=== PATIENT | female | born 1950 | race Caucasian/White ===

== ENCOUNTER 2018-01-11 14:37 | Inpatient (IN) | payer OTHER, BC ==
[~2018-01-11] VITALS: Ht 165.1 cm; Wt 93.9 kg
[~2018-01-11 14:37] MED LIST changes: -AMARYL1 MG PO; -PRAVACHOL40 MG PO; -TAMSULOSIN HCL0.4 MG PO; -TYLENOL REGULA325 MG PO
[2018-01-11 15:14] LABS: HEMATOCRIT 43.7 % (36.0-46.0); HEMOGLOBIN 14.8 G/DL (11.9-15.5); MCHC 33.9 G/DL (30.0-36.0); MCV 88.6 FL (83-99); PLATELET COUNT 249 K/uL (156-360); RBC DIS.WIDTH-CV 12.6 % (11.8-14.6); RBC DIS.WIDTH-SD 41.3 % (39-53); RED BLOOD COUNT 4.93 M/uL (3.80-5.20); WHITE BLOOD COUNT 15.2 K/uL (4.1-10.2)
[2018-01-11 15:28] LABS: CHLORIDE 101 mEq/L (99-109); SODIUM 138 mEq/L (136-147)
[2018-01-11 15:30] LABS: GLUCOSE 215 mg/dL (70-99)
[2018-01-11 15:34] LABS: CREATININE 0.9 mg/dL (0.6-1.3); GFR ESTIMATE (CALCULATED) > 59 mL/min/
[2018-01-11 15:35] LABS: UREA NITROGEN (BUN) 18 mg/dL (9-23)
[2018-01-11] MEDS ORDERED: AMARYL1 MG PO (16:29)
[2018-01-11] MEDS ORDERED: PRAVACHOL40 MG PO (16:29)
[2018-01-11] MEDS ORDERED: TYLENOL REGULA325 MG PO (16:30)
[2018-01-11 16:46] LABS: APPEARANCE SL.HAZY ((CLEAR)); BILIRUBIN NEGATIVE; BLOOD NEGATIVE; COLOR YELLOW ((YELLOW)); GLUCOSE (STRIP) >=500; KETONES 80; LEUKOCYTES NEGATIVE; NITRITE NEGATIVE; PROTEIN (STRIP) 100; SPECIFIC GRAVITY 1.025 (1.000-1.030); UROBILINOGEN 0.2 MG/DL (0.2-1.0)
[2018-01-11 16:50] LABS: BACTERIA RARE /HPF; EPITHELIAL CELLS RARE /HPF; MUCUS NONE SEEN /LPF; RED BLOOD CELLS 0-5 /HPF (0-5); WHITE BLOOD CELLS 0-5 /HPF (0-5)
[2018-01-11 19:15] VITALS: BP 171/75
[2018-01-12] VITALS (7 sets, daily range): BP systolic 97–135; BP diastolic 52–62
[2018-01-12 07:02] LABS: HEMATOCRIT 34.9 % (36.0-46.0); HEMOGLOBIN 11.7 G/DL (11.9-15.5); MCH 29.7 PG (29.0-34.0); MCHC 33.5 G/DL (30.0-36.0); MCV 88.6 FL (83-99); PLATELET COUNT 182 K/uL (156-360); RBC DIS.WIDTH-SD 42.5 % (39-53); RED BLOOD COUNT 3.94 M/uL (3.80-5.20); WHITE BLOOD COUNT 8.5 K/uL (4.1-10.2)
[2018-01-12 07:25] LABS: CHLORIDE 107 MEQ/L (99-109); GFR ESTIMATE (CALCULATED) > 59 mL/min/; GLUCOSE 197 mg/dL (70-99); POTASSIUM 3.6 MEQ/L (3.7-5.4); SODIUM 139 MEQ/L (136-147); UREA NITROGEN (BUN) 17 mg/dL (9-23)
[2018-01-13 04:22] VITALS: BP 127/61
[2018-01-13 06:50] LABS: HEMATOCRIT 34.6 % (36.0-46.0); HEMOGLOBIN 11.3 G/DL (11.9-15.5); MCH 29.4 PG (29.0-34.0); MCHC 32.7 G/DL (30.0-36.0); MCV 89.9 FL (83-99); PLATELET COUNT 154 K/uL (156-360); RBC DIS.WIDTH-CV 13.1 % (11.8-14.6); RBC DIS.WIDTH-SD 43.5 % (39-53); RED BLOOD COUNT 3.85 M/uL (3.80-5.20); WHITE BLOOD COUNT 6.9 K/uL (4.1-10.2)
[2018-01-13 07:26] LABS: CHLORIDE 112 MEQ/L (99-109); CREATININE 0.8 MG/DL (0.6-1.3); GFR ESTIMATE (CALCULATED) > 59 mL/min/; SODIUM 140 MEQ/L (136-147); UREA NITROGEN (BUN) 17 mg/dL (9-23)
[2018-01-13 07:30] LABS: GLUCOSE 118 mg/dL (70-99)
[2018-01-13 08:05] VITALS: BP 122/60
[2018-01-13] MEDS ORDERED: TAMSULOSIN HCL0.4 MG PO (11:42)
== END 2018-01-13 14:51 | disposition home or self-care (01) | DRG 669 ==
LOC: EME 14:37 → EDOF 17:33 → 2EAST 17:33 → ENRESERV 17:39 → 2EAST 19:14 → ENPENDDIS 01-13 → 2EAST 01-13 14:51
PROVIDERS: Emergency Medicine; Hospitalist; Internal Medicine
PROC: 0TC68ZZ Extirpation of Matter from Right Ureter, Via Natural or Artificial Opening Endoscopic (ICD-10-PCS; principal; 2018-01-12)
PROC: 0T768DZ Dilation of Right Ureter with Intraluminal Device, Via Natural or Artificial Opening Endoscopic (ICD-10-PCS; principal; 2018-01-12)
DX: N13.2 Hydronephrosis with renal and ureteral calculous obstruction (principal); E87.2 Acidosis; E78.5 Hyperlipidemia, unspecified; E11.9 Type 2 diabetes mellitus without complications; E86.0 Dehydration; I10 Essential (primary) hypertension; Z87.440 Personal history of urinary (tract) infections; Z87.442 Personal history of urinary calculi; E66.9 Obesity, unspecified; Z68.34 Body mass index [BMI] 34.0-34.9, adult; Z79.4 Long term (current) use of insulin
CPT/HCPCS: 71045; 80048; 81003; 82365 90; 82948; 83036; 83605; 85027; 87040; 87086; 93005; 99281; 99285; C1758; C2625; J0131; J0696; J1100; J1170; J1644; J1815; J1885; J2250; J2405; J3010; J7030

== ENCOUNTER → 2018-01-11 | Outpatient (CLI) | payer OTHER, BC ==
[~2018-01-11] MED LIST: AMARYL1 MG PO; ASPIR-LOW81 MG PO; KEFLEX500 MG PO; LEVEMIR100 UNIT/2 SC; LISINOPRIL-HCT1 EAC3 PO; METFORMIN HCL850 MG PO; PRAVACHOL40 MG PO; TAMSULOSIN HCL0.4 MG PO; TORADOL10 MG PO; TYLENOL REGULA325 MG PO; VITAMIN D31000 UNIT PO; ZOFRAN4 MG PO
== END | disposition home or self-care (01) ==
LOC: CT 13:33
DX: N13.2 Hydronephrosis with renal and ureteral calculous obstruction (principal)
CPT/HCPCS: 74176

== ENCOUNTER 2018-01-14 20:49 | Inpatient (IN) | payer OTHER, BC ==
[~2018-01-14] VITALS: Ht 162.6 cm; Wt 97.3 kg
[~2018-01-14 20:49] MED LIST changes: +AMARYL1 MG PO; +PRAVACHOL40 MG PO; +TAMSULOSIN HCL0.4 MG PO; +TYLENOL REGULA325 MG PO
[2018-01-14 22:15] LABS: HEMATOCRIT 38.5 % (36.0-46.0); HEMOGLOBIN 13.1 G/DL (11.9-15.5); MCH 30.3 PG (29.0-34.0); MCV 89.1 FL (83-99); PLATELET COUNT 193 K/uL (156-360); RBC DIS.WIDTH-CV 12.8 % (11.8-14.6); RBC DIS.WIDTH-SD 41.9 % (39-53); RED BLOOD COUNT 4.32 M/uL (3.80-5.20); WHITE BLOOD COUNT 12.2 K/uL (4.1-10.2)
[2018-01-14 22:29] LABS: CHLORIDE 107 mEq/L (99-109); POTASSIUM 4.6 mEq/L (3.7-5.4); SODIUM 140 mEq/L (136-147)
[2018-01-14 22:34] LABS: CREATININE 0.9 mg/dL (0.6-1.3); GFR ESTIMATE (CALCULATED) > 59 mL/min/
[2018-01-14 22:35] LABS: GLUCOSE 193 mg/dL (70-99); UREA NITROGEN (BUN) 16 mg/dL (9-23)
[2018-01-14 23:07] LABS: APPEARANCE SL.HAZY ((CLEAR)); BILIRUBIN NEGATIVE; BLOOD LARGE; COLOR YELLOW ((YELLOW)); GLUCOSE (STRIP) 50; KETONES 5; LEUKOCYTES MODERATE; NITRITE NEGATIVE; PROTEIN (STRIP) 30; SPECIFIC GRAVITY 1.015 (1.000-1.030); UROBILINOGEN 0.2 MG/DL (0.2-1.0)
[2018-01-14 23:38] LABS: BACTERIA 1+ /HPF; EPITHELIAL CELLS RARE /HPF; RED BLOOD CELLS 40-50 /HPF (0-5); UCUL ADDED? YES; WHITE BLOOD CELLS 15-20 /HPF (0-5)
[2018-01-14 23:39] LABS: MUCUS TRACE /LPF
[2018-01-15 05:08] VITALS: BP 109/53
[2018-01-15 08:00] VITALS: BP 116/56
[2018-01-15] MEDS ORDERED: TYLENOL EXTRA500 MG PO (10:33)
[2018-01-15 15:00] VITALS: BP 120/61
[2018-01-15 23:55] VITALS: BP 120/59
[2018-01-16 06:23] LABS: BASOPHIL (%) 0.5 % (0-1); EOSINOPHIL COUNT 0.2 K/uL (0-0.3); HEMATOCRIT 34.6 % (36.0-46.0); HEMOGLOBIN 11.4 G/DL (11.9-15.5); IMMATURE GRANULOCYTE (%) 0.5 % (0.0-0.7); LYMPHOCYTE (%) 28.2 % (15-42); LYMPHOCYTE COUNT 2.2 K/uL (1.0-2.8); MCH 29.8 PG (29.0-34.0); MCHC 32.9 G/DL (30.0-36.0); MCV 90.3 FL (83-99); MONOCYTE (%) 8.5 % (3-12); MONOCYTE COUNT 0.7 K/uL (0-0.8); NEUTROPHIL (%) 59.3 % (45-76); NEUTROPHIL COUNT 4.6 K/uL (1.8-6.4); PLATELET COUNT 188 K/uL (156-360); RBC DIS.WIDTH-SD 42.7 % (39-53); RED BLOOD COUNT 3.83 M/uL (3.80-5.20); WHITE BLOOD COUNT 7.7 K/uL (4.1-10.2)
[2018-01-16 06:40] LABS: CHLORIDE 108 MEQ/L (99-109); CREATININE 0.9 MG/DL (0.6-1.3); GFR ESTIMATE (CALCULATED) > 59 mL/min/; GLUCOSE 167 mg/dL (70-99); POTASSIUM 4.2 MEQ/L (3.7-5.4); SODIUM 141 MEQ/L (136-147); UREA NITROGEN (BUN) 11 mg/dL (9-23)
[2018-01-16 08:03] VITALS: BP 171/78
[2018-01-16 09:50] LABS: ALBUMIN 3.1 G/DL (3.2-4.8); ALKALINE PHOSPHATASE 50 IU/L (3-129); ALT (GPT) 16 IU/L (3-49); AST (GOT) 14 IU/L (2-34); DIRECT BILIRUBIN 0.1 mg/dL (0.0-0.3); LIPASE 26 U/L (1.0-51.0); TOTAL BILIRUBIN 0.4 MG/DL (0.0-1.0); TOTAL PROTEIN 5.5 G/DL (6.4-8.3)
[2018-01-16 17:33] VITALS: BP 173/78
[2018-01-17 00:18] VITALS: BP 134/82
[2018-01-17 05:54] LABS: BASOPHIL (%) 0.7 % (0-1); EOSINOPHIL (%) 2.5 % (0-5); EOSINOPHIL COUNT 0.2 K/uL (0-0.3); HEMATOCRIT 33.4 % (36.0-46.0); HEMOGLOBIN 11.2 G/DL (11.9-15.5); IMMATURE GRANULOCYTE (%) 0.3 % (0.0-0.7); LYMPHOCYTE COUNT 1.6 K/uL (1.0-2.8); MCH 29.8 PG (29.0-34.0); MCHC 33.5 G/DL (30.0-36.0); MCV 88.8 FL (83-99); MONOCYTE COUNT 0.5 K/uL (0-0.8); NEUTROPHIL (%) 60.5 % (45-76); NEUTROPHIL COUNT 3.6 K/uL (1.8-6.4); PLATELET COUNT 168 K/uL (156-360); RBC DIS.WIDTH-CV 12.9 % (11.8-14.6); RBC DIS.WIDTH-SD 41.9 % (39-53); RED BLOOD COUNT 3.76 M/uL (3.80-5.20)
[2018-01-17 06:18] LABS: CHLORIDE 108 MEQ/L (99-109); CREATININE 0.7 MG/DL (0.6-1.3); GFR ESTIMATE (CALCULATED) > 59 mL/min/; POTASSIUM 3.9 MEQ/L (3.7-5.4); SODIUM 141 MEQ/L (136-147); UREA NITROGEN (BUN) 9 mg/dL (9-23)
[2018-01-17 06:22] LABS: GLUCOSE 101 mg/dL (70-99)
[2018-01-17 07:00] VITALS: BP 164/74
[2018-01-17] MEDS ORDERED: POLYETHYLENE GL17 GM PO (15:41)
[2018-01-17] MEDS ORDERED: SENNA PLUS TAB1 EACH PO (15:41)
[2018-01-17] MEDS ORDERED: CEFTIN500 MG PO (15:41)
[2018-01-17] MEDS ORDERED: COLACE100 MG PO (15:41)
[2018-01-17 16:03] VITALS: BP 139/83
== END 2018-01-17 17:10 | disposition home or self-care (01) | DRG 699 ==
LOC: EME 20:49 → EDOF 01-15 03:54 → ENRESERV 01-15 03:55 → 5EAST 01-15 04:48
PROVIDERS: Hospitalist; Internal Medicine; Physician Assistant
DX: T83.84XA Pain due to genitourinary prosthetic devices, implants and grafts, initial encounter (principal); N13.30 Unspecified hydronephrosis; R10.31 Right lower quadrant pain; I10 Essential (primary) hypertension; E78.5 Hyperlipidemia, unspecified; E11.9 Type 2 diabetes mellitus without complications; D72.829 Elevated white blood cell count, unspecified; K59.00 Constipation, unspecified; E87.2 Acidosis; Z87.442 Personal history of urinary calculi; Z90.710 Acquired absence of both cervix and uterus; Z79.899 Other long term (current) drug therapy; Z88.5 Allergy status to narcotic agent; Z79.4 Long term (current) use of insulin; Z98.890 Other specified postprocedural states
CPT/HCPCS: 74018; 74176; 80048; 80076; 81003; 82948; 83605; 83690; 85025; 85027; 87086; 94799; 99281; 99285; J0696; J1644; J1815; J1885; J2405; J3010; J7030